=== PATIENT | male | born 1995 | race Hispanic/Latino ===

== ENCOUNTER 2019-11-04 12:44 | Emergency (ER) | payer SELFPAY ==
[2019-11-04] MEDS ORDERED: OSELTAMIVIR 75 MG CAP ONE (15:04)
[2019-11-04] MEDS ORDERED: IBUPROFEN 400 MG TAB ONE (15:05)
[2019-11-04] MEDS ORDERED: AZITHROMYCIN 250 MG TAB ONE (15:05)
--- NOTE | 2019-11-04 15:05 | EDPHYS ---
Physician Documentation [facility] Name: Abel Johnson Jr Age: 23 yrs Sex: Male : 1995 Arrival Date: 11/04/2019 Time: 12:53 Bed 20 Private MD: ED Physician Meet Spangler HPI: 11/04 15:00 This 23 yrs old Male presents to ER via Ambulatory with complaints of Flu pratik Symptoms. 15:00 The patient or guardian reports cough, described as mild, flu symptoms, arthralgias, pratik low-grade fever, myalgias. Onset: The symptoms/episode began/occurred 2 day(s) ago. Modifying factors: The symptoms are alleviated by nothing. the symptoms are aggravated by nothing. fever. Associated signs and symptoms: Pertinent positives: fever, rhinorrhea, sore throat. The patient reports fever, that was measured at 102 degrees Fahrenheit. Modifying factors: there are no obvious modifying factors. Historical: - Allergies: 13:00 No Known Allergies; sg - Home Meds: 13:00 None [Active]; sg - PMHx: 13:00 None; sg - PSHx: 13:00 Lower Back surgery for "ingrown hair"; sg - Immunization history:: Adult Immunizations up to date. - Social history:: Smoking status: Patient uses tobacco products, denies chronic smoking, but will smoke occasionally. - Ebola Screening: : No symptoms or risks identified at this time. - Family history:: not pertinent. ROS: 15:00 Constitutional: Negative for fever, chills, and weight loss, Eyes: Negative for injury, pratik pain, redness, and discharge, Neck: Negative for injury, pain, and swelling, Cardiovascular: Negative for chest pain, palpitations, and edema, Abdomen/GI: Negative for abdominal pain, nausea, vomiting, diarrhea, and constipation, Back: Negative for injury and pain, : Negative for injury, bleeding, discharge, and swelling, MS/Extremity: Negative for injury and deformity, Skin: Negative for injury, rash, and discoloration, Neuro: Negative for headache, weakness, numbness, tingling, and seizure, Psych: Negative for depression, anxiety, suicide ideation, homicidal ideation, and hallucinations, Allergy/Immunology: Negative for hives, rash, and allergies, Endocrine: Negative for neck swelling, polydipsia, polyuria, polyphagia, and marked weight changes, Hematologic/Lymphatic: Negative for swollen nodes, abnormal bleeding, and unusual bruising. 15:00 ENT: Positive for difficulty swallowing, rhinorrhea, sinus congestion. Exam: 15:02 Head/Face: Normocephalic, atraumatic. Eyes: Pupils equal round and reactive to light, pratik extra-ocular motions intact. Lids and lashes normal. Conjunctiva and sclera are non-icteric and not injected. Cornea within normal limits. Periorbital areas with no swelling, redness, or edema. Neck: Trachea midline, no thyromegaly or masses palpated, and no cervical lymphadenopathy. Supple, full range of motion without nuchal rigidity, or vertebral point tenderness. No Meningismus. Chest/axilla: Normal chest wall appearance and motion. Nontender with no deformity. No lesions are appreciated. Cardiovascular: Regular rate and rhythm with a normal S1 and S2. No gallops, murmurs, or rubs. Normal PMI, no JVD. No pulse deficits. Respiratory: Lungs have equal breath sounds bilaterally, clear to auscultation and percussion. No rales, rhonchi or wheezes noted. No increased work of breathing, no retractions or nasal flaring. Abdomen/GI: Soft, non-tender, with normal bowel sounds. No distension or tympany. No guarding or rebound. No evidence of tenderness throughout. Back: No spinal tenderness. No costovertebral tenderness. Full range of motion. Male : Normal genitalia with no discharge or lesions. Skin: Warm, dry with normal turgor. Normal color with no rashes, no lesions, and no evidence of cellulitis. MS/ Extremity: Pulses equal, no cyanosis. Neurovascular intact. Full, normal range of motion. Neuro: Awake and alert, GCS 15, oriented to person, place, time, and situation. Cranial nerves II-XII grossly intact. Motor strength 5/5 in all extremities. Sensory grossly intact. Cerebellar exam normal. Normal gait. Psych: Awake, alert, with orientation to person, place and time. Behavior, mood, and affect are within normal limits. 15:02 Constitutional: The patient appears febrile. 15:02 ENT: Posterior pharynx: Tonsils: with erythema, Uvula: normal, midline, erythema, swelling, that is mild, erythema, that is mild, exudate, is not appreciated. Vital Signs: 13:00 BP 140 / 71; Pulse 87; Resp 16; Temp 98.2; Pulse Ox 99% on R/A; Weight 113.4 kg; Height sg 5 ft. 4 in. (162.56 cm); Pain 10/10; 15:09 BP 138 / 68; Pulse 79; Resp 17; Pulse Ox 100% on R/A; tw2 13:00 Body Mass Index 42.91 (113.40 kg, 162.56 cm) MDM: 14:12 Patient medically screened. [facility] 15:02 Data reviewed: vital signs, nurses notes, lab test result(s), Flu: positive. [facility] 11/04 14:13 Order name: Flu; Complete Time: 14:54 [facility] 11/04 14:59 Order name: PO challenge; Complete Time: 15:00 [facility] Administered Medications: 15:04 Drug: Tamiflu 75 mg Route: PO; tw2 15:12 Follow up: Response: No adverse reaction tw2 15:04 Drug: Motrin 800 mg Route: PO; tw2 15:12 Follow up: Response: No adverse reaction tw2 15:05 Drug: Zithromax 500 mg Route: PO; tw2 15:12 Follow up: Response: No adverse reaction tw2 Disposition: 11/04/19 15:04 Discharged to Home. Impression: Influenza due to certain identified influenza viruses - Flu B, Fever, unspecified. - Condition is Stable. - Discharge Instructions: Fever, Adult, Influenza, Adult, Influenza, Adult, [id number], Fever, Adult, [id number]. - Prescriptions for Zithromax Z- Lars 250 mg Oral Tablet - take 1 tablet by ORAL route as directed for 5 days Day 1 - take two (2) tablets one time. Day 2, 3, 4 , 5 take one (1) tablet once daily.; 6 tablet. Tamiflu 75 mg Oral Capsule - take 1 tablet by ORAL route every 12 hours for 5 days; 10 tablet. - Medication Reconciliation Form, Thank You Letter, Antibiotic Education, Prescription Opioid Use, Work release form form. - Follow up: Private Physician; When: 2 - 3 days; Reason: Recheck today's complaints, Continuance of care, Re-evaluation by your physician. - Problem is new. - Symptoms have improved. Signatures: Dispatcher [employer] EDGustavo Zarco, RN RN Meet Kan MD MD cha Wise, Tara, RN RN tw2 Corrections: (The following items were deleted from the chart) 15:13 15:04 11/04/2019 15:04 Discharged to Home. Impression: Influenza due to certain tw2 identified influenza viruses - Flu B; Fever, unspecified. Condition is Stable. Forms are Work release form, Medication Reconciliation Form, Thank You Letter, Antibiotic Education, Prescription Opioid Use. Follow up: Private Physician; When: 2 - 3 days; Reason: Recheck today's complaints, Continuance of care, Re-evaluation by your physician. Problem is new. Symptoms have improved. pratik
--- NOTE | 2019-11-04 15:05 | ER ---
Nurse's Notes [facility] Name: Abel Johnson Jr Age: 23 yrs Sex: Male : 1995 Arrival Date: 11/04/2019 Time: 12:53 Bed 20 Private MD: Diagnosis: Influenza due to certain identified influenza viruses-Flu B;Fever, unspecified Presentation: 11/04 12:59 Presenting complaint: Body aches, nonproductive cough, subjective fever, sore throat, sg and chills x 4 days. Transition of care: patient was not received from another setting of care. Onset of symptoms was October 31, 2019. Risk Assessment: Do you want to hurt yourself or someone else? Patient reports no desire to harm self or others. Initial Sepsis Screen: Does the patient meet any 2 criteria? No. Patient's initial sepsis screen is negative. Does the patient have a suspected source of infection? No. Patient's initial sepsis screen is negative. Care prior to arrival: None. 12:59 Method Of Arrival: Ambulatory sg 12:59 Acuity: MANPREET 4 sg Historical: - Allergies: 13:00 No Known Allergies; sg - Home Meds: 13:00 None [Active]; sg - PMHx: 13:00 None; sg - PSHx: 13:00 Lower Back surgery for "ingrown hair"; sg - Immunization history:: Adult Immunizations up to date. - Social history:: Smoking status: Patient uses tobacco products, denies chronic smoking, but will smoke occasionally. - Ebola Screening: : No symptoms or risks identified at this time. - Family history:: not pertinent. Screenin:13 Abuse screen: Denies threats or abuse. Nutritional screening: No deficits noted. tw2 Tuberculosis screening: No symptoms or risk factors identified. Fall Risk None identified. Assessment: 14:06 General: Appears in no apparent distress. obese, Behavior is calm, cooperative, tw2 appropriate for age. Pain: Complains of pain in "body aches". Neuro: Level of Consciousness is awake, alert, obeys commands, Oriented to person, place, time, situation. Cardiovascular: Patient's skin is warm and dry. Respiratory: Airway is patent Respiratory effort is even, unlabored, Respiratory pattern is regular, symmetrical. GI: No signs and/or symptoms were reported involving the gastrointestinal system. : No signs and/or symptoms were reported regarding the genitourinary system. EENT: No signs and/or symptoms were reported regarding the EENT system. Derm: No signs and/or symptoms reported regarding the dermatologic system. Musculoskeletal: Range of motion: intact in all extremities. 15:09 Reassessment: Patient appears in no apparent distress at this time. No changes from tw2 previously documented assessment. Patient and/or family updated on plan of care and expected duration. Pain level reassessed. Patient is alert, oriented x 3, equal unlabored respirations, skin warm/dry/pink. pt drinking water throughout stay with us at this time. Vital Signs: 13:00 BP 140 / 71; Pulse 87; Resp 16; Temp 98.2; Pulse Ox 99% on R/A; Weight 113.4 kg; Height sg 5 ft. 4 in. (162.56 cm); Pain 10/10; 15:09 BP 138 / 68; Pulse 79; Resp 17; Pulse Ox 100% on R/A; tw2 13:00 Body Mass Index 42.91 (113.40 kg, 162.56 cm) ED Course: 12:53 Patient arrived in ED. rg4 13:00 Triage completed. sg 13:00 Arm band placed on. sg 14:08 Bed in low position. Call light in reach. tw2 14:12 Meet Spangler MD is Attending Physician. [facility] 14:13 Glenny Reina, JUANA is Primary Nurse. tw2 14:22 Flu Sent. tw2 15:12 No provider procedures requiring assistance completed. Patient did not have IV access tw2 during this emergency room visit. Administered Medications: 15:04 Drug: Tamiflu 75 mg Route: PO; tw2 15:12 Follow up: Response: No adverse reaction tw2 15:04 Drug: Motrin 800 mg Route: PO; tw2 15:12 Follow up: Response: No adverse reaction tw2 15:05 Drug: Zithromax 500 mg Route: PO; tw2 15:12 Follow up: Response: No adverse reaction tw2 Outcome: 15:04 Discharge ordered by . pratik 15:12 Discharged to home ambulatory, with family. tw2 15:12 Condition: stable 15:12 Discharge instructions given to patient, family, Instructed on discharge instructions, follow up and referral plans. medication usage. 15:13 Patient left the ED. tw2 Signatures: Gustavo Cummings RN RN sg Meet Spangler MD MD cha Wise, Tara, RN RN tw2 Delphine Cole 4
[2019-11-04 15:20] VITALS: TEMP 98.2
[2019-11-04 15:21] VITALS: BP 138/68; O2SAT 100
== END 2019-11-04 15:13 | disposition home or self-care (01) ==
LOC: ER 12:44
DX: J10.1 Influenza due to other identified influenza virus with other respiratory manifestations (principal); Z72.0 Tobacco use
CPT/HCPCS: 87804; 99283